=== PATIENT | male | born 1985 | race African-American/Black ===

== ENCOUNTER 2024-09-29 02:22 | Emergency (ER) | payer MEDICAID, OTHER ==
[~2024-09-29] VITALS: Ht 175.3 cm; Wt 68.0 kg
[2024-09-29 02:24] VITALS: O2SAT 98
[2024-09-29 02:50] LABS: BASOPHILS % 0.4 % (0.0-2.0); EOSINOPHILS % 4.3 % (0.0-5.0); HEMATOCRIT. 36.7 % (42.0-52.0); LYMPHOCYTES % 31.3 % (20.0-50.0); MEAN CORPUSCULAR HEMOGLOBIN 28.9 pg (28.0-32.0); MEAN CORPUSCULAR HGB CONC 32.6 g/dL (31.0-37.0); MEAN CORPUSCULAR VOLUME 88.5 fL (80.0-94.0); MEAN PLATELET VOLUME 7.1 fl (7.4-10.4); MONOCYTES % 13.4 % (2.0-8.0); NEUTROPHILS % 50.6 % (40.0-76.0); PLATELET 241 x1000/uL (130-400); RED BLOOD CELL COUNT 4.14 mill/uL (4.7-6.1); RED CELL DISTRIBUTION WIDTH 13.9 % (11.6-14.6); WHITE BLOOD COUNT 4.8 x1000/uL (4.5-11.0)
[2024-09-29 02:55] LABS: CHLORIDE 108 mEq/L (98-107); POTASSIUM 3.9 mEq/L (3.5-5.1); SODIUM 140 mEq/L (136-145)
[2024-09-29 02:56] LABS: CARBON DIOXIDE 28 mEq/L (21-32)
[2024-09-29 03:01] LABS: GLUCOSE 87 mg/dL (70-105); PARTIAL THROMBOPLASTIN TIME 25.7 sec (23.4-31.0); PROTHROMBIN TIME 10.9 sec (9.6-11.0); UREA NITROGEN BLOOD 13 mg/dL (9-23)
[2024-09-29 03:02] LABS: ETHANOL BLOOD < 10 mg/dL (<10)
[2024-09-29 04:00] LABS: TROPONIN I HIGH SENSITIVITY < 4 ng/L (3.0-53)
[2024-09-29] MEDS: SODIUM CHLORIDE 0.9% 1,000 ML IV ONE (05:22)
[2024-09-29 06:17] VITALS: BP 111/78; PULSE 56; RESP 12; TEMP 36.4; O2SAT 100
== END 2024-09-29 07:12 | disposition short-term general hospital (02) ==
LOC: ER 02:32 → CANBEDREQ 07:00 → ER 07:12
DX: R53.1 Weakness (principal); R00.1 Bradycardia, unspecified; E11.9 Type 2 diabetes mellitus without complications; Z00.00 Encounter for general adult medical examination without abnormal findings
CPT/HCPCS: 80048; 80320; 83880; 85025; 85610; 85730; 84484; 36415; 71045; 93005; 96360; 99285; Z7610 ×2; G0480